=== PATIENT | female | born 1950 ===

== ENCOUNTER 2023-11-27 05:53 | Inpatient (IN) | payer OTHER ==
[~2023-11-27] VITALS: Ht 160 cm; Wt 69.9 kg
[~2023-11-27 05:53] MED LIST: LISINOPRIL10 MG PO; ROSUVASTATIN CA10 MG PO; SYNTHROID75 MCG PO
[2023-11-27] MEDS ORDERED: CEFOXITIN SODIUM 2,000 MG VIAL IV ONE ×2 (10:56→16:46)
[2023-11-27] MEDS ORDERED: POVIDONE-IODINE 118 ML BOTT TOP ONE (10:56)
[2023-11-27] MEDS ORDERED: THROMBIN,HU/FIBRINOGEN/CALCIUM 10 ML SYRINGE TOP ONE (12:25)
[2023-11-27] MEDS ORDERED: VISTASEAL DUAL APPICATOR 1 EACH APPL TOP ONE (12:25)
[2023-11-27] MEDS ORDERED: MORPHINE SULFATE 4 MG/ML CARTRIDGE IV PRN (14:00)
[2023-11-27] MEDS ORDERED: RINGERS SOLUTION,LACTATED 1,000 ML IV SCH (14:15)
[2023-11-27] MEDS ORDERED: SUGAMMADEX SODIUM 200 MG/2 ML VIAL IV ONE (14:32)
[2023-11-27] MEDS ORDERED: MORPHINE SULFATE 4 MG/ML VIAL IV ONE (14:55)
[2023-11-27] MEDS ORDERED: KETOROLAC TROMETHAMINE 30 MG VIAL ONE (16:45)
[2023-11-27] MEDS ORDERED: METOCLOPRAMIDE HCL 5 MG/ML VIAL ONE (16:45)
[2023-11-27] MEDS ORDERED: CEFOXITIN SODIUM 2,000 MG VIAL IV SCH (17:00)
[2023-11-27] MEDS ORDERED: METOCLOPRAMIDE HCL 5 MG/ML VIAL IV SCH (17:00)
[2023-11-27] MEDS ORDERED: SIMETHICONE 125 MG CAPSULE PO SCH (17:00)
[2023-11-27] MEDS ORDERED: KETOROLAC TROMETHAMINE 30 MG VIAL IV SCH (17:00)
[2023-11-27] MEDS ORDERED: FAMOTIDINE/PF 20 MG/2 ML VIAL ONE (20:34)
[2023-11-27] MEDS ORDERED: DOCUSATE SODIUM 100MG CAP PO SCH (21:00)
[2023-11-27] MEDS ORDERED: FAMOTIDINE/PF 20 MG/2 ML VIAL IV SCH (21:00)
[2023-11-27 21:05] LABS: HEMATOCRIT 36.2 % (36.0-45.00); HEMOGLOBIN 12.1 g/dL (12.0-15.00); MEAN CELL VOLUME 92.3 fL (80.00-100.00); MEAN CORPUSCULAR HEMOGLOBIN 30.8 pg (27.00-32.0); MEAN CORPUSCULAR HGB CONC 33.3 g/dl (32.0-36.0); PLATELET COUNT 207 K/uL (150-450); RED BLOOD COUNT 3.93 M/uL (4.00-6.00); RED CELL DISTRIBUTION WIDTH 13.5 % (11.5-14.5)
[2023-11-27 21:34] LABS: CALCIUM 8.8 mg/dL (8.5-10.1); CREATININE SERUM 0.79 mg/dL (0.55-1.02); GFR 71.14; POTASSIUM 4.59 mEq/L (3.5-5.1)
[2023-11-27 22:11] VITALS: BP 150/69
[2023-11-27 22:35] VITALS: BP 150/69
[2023-11-28] VITALS: BP 119/69
[2023-11-28 02:23] LABS: MEAN CORPUSCULAR HGB CONC 33.8 g/dl (32.0-36.0); PLATELET COUNT 167 K/uL (150-450); RED BLOOD COUNT 3.18 M/uL (4.00-6.00); RED CELL DISTRIBUTION WIDTH 13.4 % (11.5-14.5)
[2023-11-28 02:25] LABS: HEMOGLOBIN 9.8 g/dL (12.0-15.00); MEAN CORPUSCULAR HEMOGLOBIN 30.8 pg (27.00-32.0)
[2023-11-28 02:42] LABS: CALCIUM 8.2 mg/dL (8.5-10.1); CREATININE SERUM 0.71 mg/dL (0.55-1.02); GFR 80.47; POTASSIUM 4.21 mEq/L (3.5-5.1)
[2023-11-28] MEDS ORDERED: LEVOTHYROXINE SODIUM 75 MCG TABLET PO SCH (06:00)
[2023-11-28 08:00] VITALS: BP 121/81
[2023-11-28] MEDS ORDERED: LISINOPRIL 10 MG TABLET PO SCH (09:00)
[2023-11-28] MEDS ORDERED: ENOXAPARIN SODIUM 40 MG/0.4 ML SYRINGE SUBCUTANEO SCH (09:00)
== END 2023-11-28 13:19 | disposition home or self-care (01) | DRG 741 ==
LOC: CIR.AMB 05:53 → O/R 15:55 → OB/GYN 15:55
PROVIDERS: Obstetrics & Gynecology; ADMIT Obstetrics & Gynecology Gynecologic Oncology; ATTEND Obstetrics & Gynecology Gynecologic Oncology
PROC: 0UT74ZZ Resection of Bilateral Fallopian Tubes, Percutaneous Endoscopic Approach (ICD-10-PCS; 2023-11-27)
PROC: 0UT24ZZ Resection of Bilateral Ovaries, Percutaneous Endoscopic Approach (ICD-10-PCS; 2023-11-27)
PROC: 07BC4ZZ Excision of Pelvis Lymphatic, Percutaneous Endoscopic Approach (ICD-10-PCS; 2023-11-27)
PROC: 07BD4ZZ Excision of Aortic Lymphatic, Percutaneous Endoscopic Approach (ICD-10-PCS; 2023-11-27)
PROC: 8E0W4CZ Robotic Assisted Procedure of Trunk Region, Percutaneous Endoscopic Approach (ICD-10-PCS; 2023-11-27)
PROC: 0UT94ZZ Resection of Uterus, Percutaneous Endoscopic Approach (ICD-10-PCS; principal; 2023-11-27 10:15)
DX: C54.1 Malignant neoplasm of endometrium (principal); Z20.822 Contact with and (suspected) exposure to COVID-19
CPT/HCPCS: 58548; S2900